=== PATIENT | female | born 1990 | race African-American/Black ===

== ENCOUNTER 2021-05-12 09:11 | Inpatient (IN) | payer OTHER ==
[2021-05-12] MEDS ORDERED: TERBUTALINE SULFATE 1 MG/1 ML VIAL SQ ONE ×2 (10:10→10:20)
[2021-05-12] MEDS ORDERED: PROMETHAZINE HCL 25 MG/1 ML VIAL IVPUSH ONE (10:23)
[2021-05-12] MEDS ORDERED: CITRIC ACID/SODIUM CITRATE 30 ML UNIT-DOSE CUP PO ONE (10:23)
[2021-05-12] MEDS ORDERED: ELECTROLYTE-148 SOLN 500 ML IV ONE (10:23)
[2021-05-12] MEDS ORDERED: ELECTROLYTE-148 SOLN 1,000 ML IV SCH ×3 (10:30→11:15)
[2021-05-12 11:24] VITALS: BMI 34.3
[2021-05-12] MEDS ORDERED: morphine SULFATE/PF 0.5 MG/ML (2cc Syringe - QUVA) ONE (12:43)
[2021-05-12] MEDS ORDERED: ONDANSETRON 4 MG/2 ML VIAL ONE (13:02)
[2021-05-12] MEDS ORDERED: ceFAZolin SODIUM 1 GM VIAL ONE (13:02)
[2021-05-12] MEDS ORDERED: OXYTOCIN 10 UNITS/ML VIAL ONE (13:02)
[2021-05-12] MEDS ORDERED: KETOROLAC TROMETHAMINE 30 MG/1 ML VIAL ONE (13:02)
[2021-05-12] MEDS ORDERED: METHYLERGONOVINE MALEATE 0.2 MG/1 ML AMP IM PRN (13:54)
[2021-05-12 13:57] LABS: CORD BASE EXCESS -2.2 mmol/L (0-2); CORD HCO3 23.1 mmHg (20-29); CORD pH 7.359 (7.14-7.44)
[2021-05-12] MEDS ORDERED: SENNOSIDES/DOCUSATE COMBO (SENNA PLUS) TABLET (UD) PO PRN (14:04)
[2021-05-12] MEDS ORDERED: IBUPROFEN 800 MG/8 ML IJ IVPB PRN (14:04)
[2021-05-12] MEDS ORDERED: oxyCODONE HCL 5 MG TABLET PO PRN (14:04)
[2021-05-12] MEDS ORDERED: WITCH HAZEL 50% (TUCKS) 40 PAD/JAR PAD TP PRN (14:04)
[2021-05-12] MEDS ORDERED: OXYTOCIN 20 UNITS in 0.9% NS 20 UNIT/1,000 ML INFUS.BAG IV SCH ×2 (14:15→15:00)
[2021-05-12] MEDS ORDERED: ACETAMINOPHEN 1000 MG/100 ML VIAL (NON FORMULARY) IVPB PRN (14:46)
[2021-05-12] MEDS ORDERED: ACETAMINOPHEN INJECTION 100 ML IVPB ONE (15:42)
[2021-05-12] MEDS ORDERED: OXYTOCIN 20 UNITS in 0.9% NS 20 UNIT/1,000 ML INFUS.BAG IV ONE (15:42)
[2021-05-13] MEDS: ACETAMINOPHEN 325 MG TABLET (FP) PO PRN ×3 (01:56→19:48)
[2021-05-13] MEDS: IBUPROFEN 600 MG TABLET (FP) PO PRN ×3 (01:57→19:49)
[2021-05-13] MEDS: PRENATAL VITAMINS W/ FOLIC ACID TABLET (FP) PO SCH (09:01)
[2021-05-13 10:07] LABS: BASO % 0.3 % (0-2.0); EOS % 1.6 % (0-4.5); HEMATOCRIT 27.7 % (32.4-45.2); HEMOGLOBIN 9.4 GM/dL (10.7-15.3); LYMPH % 14.2 % (8-40); MCH 26.6 pg (25.7-33.7); MCHC 33.9 g/dl (32.0-36.0); MEAN CELL VOLUME 78.5 fl (80-96); MEAN PLT VOLUME 9.5 fl (7.5-11.1); MONO % 4.3 % (3.8-10.2); NEUT % 79.6 % (42.8-82.8); PLATELET COUNT 192 10^3/uL (134-434); RBC 3.53 M/mm3 (3.60-5.2); RDW 16.2 % (11.6-15.6); WHITE BLOOD COUNT 9.5 K/mm3 (4.0-10.0)
[2021-05-13] MEDS ORDERED: BISACODYL 10 MG SUPP.RECT RC PRN (13:54)
[2021-05-13] MEDS ORDERED: oxyCODONE HCL 5 MG TABLET PO PRN ×2 (14:04→14:22)
[2021-05-13] MEDS ORDERED: PROMETHAZINE HCL 25 MG/1 ML VIAL IVPUSH PRN (14:22)
[2021-05-13] MEDS ORDERED: ONDANSETRON 4 MG/2 ML VIAL IVPUSH PRN (14:22)
[2021-05-13] MEDS: SIMETHICONE 80 MG TAB.CHEW (FP) PO PRN (19:49)
[2021-05-13] MEDS: FERROUS SO4 325 MG TABLET (FP) PO SCH (23:00)
[2021-05-14] MEDS: ACETAMINOPHEN 325 MG TABLET (FP) PO PRN (05:10)
[2021-05-14] MEDS: IBUPROFEN 600 MG TABLET (FP) PO PRN ×3 (05:10→17:31)
[2021-05-14] MEDS: SIMETHICONE 80 MG TAB.CHEW (FP) PO PRN ×2 (05:10→09:32)
[2021-05-14] MEDS: PRENATAL VITAMINS W/ FOLIC ACID TABLET (FP) PO SCH (09:22)
[2021-05-14] MEDS: FERROUS SO4 325 MG TABLET (FP) PO SCH ×2 (09:22→21:31)
[2021-05-15 10:23] VITALS: BP 140/63; PULSE 106; TEMP 98.2
[2021-05-15] MEDS: PRENATAL VITAMINS W/ FOLIC ACID TABLET (FP) PO SCH (10:25)
[2021-05-15] MEDS: FERROUS SO4 325 MG TABLET (FP) PO SCH (10:25)
[2021-05-15 10:38] LABS: BASO % 0.4 % (0-2.0); EOS % 2.3 % (0-4.5); HEMATOCRIT 28.8 % (32.4-45.2); HEMOGLOBIN 9.7 GM/dL (10.7-15.3); LYMPH % 21.2 % (8-40); MCH 26.4 pg (25.7-33.7); MCHC 33.6 g/dl (32.0-36.0); MEAN CELL VOLUME 78.6 fl (80-96); MEAN PLT VOLUME 9.4 fl (7.5-11.1); MONO % 5.8 % (3.8-10.2); NEUT % 70.3 % (42.8-82.8); PLATELET COUNT 229 10^3/uL (134-434); RBC 3.67 M/mm3 (3.60-5.2); RDW 16.1 % (11.6-15.6); WHITE BLOOD COUNT 7.7 K/mm3 (4.0-10.0)
== END 2021-05-15 14:55 | disposition home or self-care (01) | DRG 788 ==
LOC: JLDR 09:11 → J3W 16:15
PROVIDERS: ADMIT Obstetrics & Gynecology; ATTEND Obstetrics & Gynecology
PROC: 10D00Z1 Extraction of Products of Conception, Low, Open Approach (ICD-10-PCS; principal; 2021-05-12)
DX: O34.211 Maternal care for low transverse scar from previous cesarean delivery (principal); O69.81X0 Labor and delivery complicated by cord around neck, without compression, not applicable or unspecified; O90.81 Anemia of the puerperium; D64.9 Anemia, unspecified; Z3A.39 39 weeks gestation of pregnancy; Z37.0 Single live birth
CPT/HCPCS: 36415; 36600; 82803; 85025; 88307-TC; J0131